=== PATIENT | male | born 1995 | race Caucasian/White ===

== ENCOUNTER 2019-09-30 18:33 | Emergency (ER) | payer SELFPAY ==
[2019-09-30 18:53] VITALS: BP 146/90; PULSE 75; RESP 18; TEMP 37.2; O2SAT 100; BMI 20.6
--- NOTE | 2019-09-30 19:07 | ED_ITS ---
HPI - Extremity Problem General: Chief complaint: Extremity Problem,Nontraumatic Stated complaint: swelling in left arm Time Seen by Provider: 09/30/19 18:59 History of Present Illness: HPI Narrative: Left hand wrist with redness x2 days after he had some swelling of his finger and he poked himself the needle try to relieve the swelling and now he has redness extending up to the wrist. Tetanus is up-to-date MD Complaint: extremity pain Onset (ago): day(s) (2) Location: left Quality: aching Radiation: proximal Relieving factors: nothing Exacerbating factors: nothing Associated symptoms: Reports no associated symptoms; Deny chest pain, fever(s) or rash Review of Systems Const: Denies: fever, chills or body aches Eyes: Denies: change in vision or blurry vision ENMT: Denies: throat pain or nasal congestion Card: Denies: chest pain or shortness of breath on exertion Resp: Denies: shortness of breath, productive cough or non-productive cough GI: Denies: abdominal pain, nausea or vomiting : Denies: difficulty urinating Musc: Reports: extremity pain (Redness to left hand extending from the #2 finger) and extremity swelling Skin/Breast: Denies: rash Neuro: Denies: headache Psych: Denies: anxiety or depression Aftab/Lymph: Denies: easy bruising PFSH ED PFSH: Social History Smoking and tobacco status: current every day smoker Physical Exam Const: COMMON NORMALS: no apparent distress, average body habitus and oriented x3 HENMT: COMMON NORMALS: normocephalic HEAD & SCALP: normal to inspection and normocephalic FACE & SINUS: normal facial exam Eye: COMMON NORMALS: conjunctivae normal GENERAL EYE: normal appearance of both eyes CONJUNCTIVA: Yes conjunctivae normal Neck/C-Spine: COMMON NORMALS: no JVD Chest: COMMONS NORMALS: inspection of chest normal Resp: COMMON NORMALS: normal respiratory effort and clear to auscultation bilaterally AUSCULTATION: clear to auscultation bilaterally Cardio: COMMON NORMALS: no JVD, regular rate and regular rhythm RATE: regular rate RHYTHM: regular rhythm GI: COMMON NORMALS: normal to inspection, nondistended, normoactive bowel sounds Extremity: COMMON NORMALS: full ROM NARRATIVE EXTREMITY EXAM: Has redness extend from #2 finger on the left hand just past the wrist proximal that no swelling Neuro: COMMON NORMALS: oriented x3 Course Vital Signs: Vital signs: Vital Signs Temperature 98.9 F 09/30/19 18:53 Pulse Rate 60 09/30/19 20:20 Respiratory Rate 16 09/30/19 20:20 Blood Pressure 112/81 09/30/19 20:20 Pulse Oximetry 100 09/30/19 20:20 MDM - Extremity (Nontraumatic) Lab Data: Labs: Lab Results 09/30/19 Range/Units 19:10 WBC 6.3 (4.0-10.0) 10^3/ uL RBC 4.21 (4.1-5.3) 10^6/u L Hgb 12.7 (11.7-16.6) g/dL Hct 37.9 L (42.0-52.0) % MCV 90.0 (80-94) fL MCH 30.2 (28.0-34.0) pg MCHC 33.5 (30.0-36.0) g/dL RDW 11.8 L (12.1-15.1) % Plt Count 189 (130-400) 10^3/c mm MPV 9.5 (7.4-10.4) fL Neut % (Auto) 61.6 % Lymph % (Auto) 31.6 % [place] % (Auto) 4.8 % Eos % (Auto) 1.3 % Baso % (Auto) 0.5 % Neut # (Auto) 3.9 (1.8-7.7) 10^3/u L Lymph # (Auto) 2.0 (0.8-4.8) 10^3/u L [place] # (Auto) 0.3 (0.2-0.9) 10^3/u L Eos # (Auto) 0.1 (0.0-0.8) 10^3/u L Baso # (Auto) 0.0 (0.0-0.1) 10^3/u L Nucleated RBC % (a uto) 0 % Nucleated RBCs # 0.0 /100WBC Discharge Plan Discharge Patient Disposition: Home, Self-Care Clinical Impression: Cellulitis Qualifiers: Site of cellulitis: extremity Site of cellulitis of extremity: upper extremity Laterality: left Qualified Code(s): L03.114 - Cellulitis of left upper limb Condition: Stable Prescriptions: New Keflex 500 mg capsule 500 mg PO TID 7 Days Qty: 21 RF: 0 Discharge Orders: Discharge Order (Routine); Ordered 09/30/19 Ordered By: Scott Lindsay Referrals: Johnny Klein MD [Family Provider] - Ayse Martinez FNP-C [Primary Care Provider] - Discharge Diet: Advance as tolerated Discharge Activity: Increase activity as tolerated Patient Instructions: Cellulitis (ED) Activity Restrictions/Additional Instructions: Follow-up with medical provider as directed. Take medications as prescribed. Return to the ER or your medical provider if condition worsens. Please read and understand discharge instructions. If any questions ask please. Discharge Date/Time: 09/30/19 20:26 Coding Level of Care Code ED Supervisor Of Guidance And Testing for Yesseni[place] Fwd Exam Comprehensive
[2019-09-30 19:25] LABS: Basophils % 0.5 %; Eosinophils # 0.1 10^3/uL (0.0-0.8); Eosinophils % 1.3 %; Hematocrit 37.9 % (42.0-52.0); Hemoglobin 12.7 g/dL (11.7-16.6); Lymphocytes % 31.6 %; Mean Corpuscular HGB Conc 33.5 g/dL (30.0-36.0); Mean Corpuscular Hemoglobin 30.2 pg (28.0-34.0); Mean Platelet Volume 9.5 fL (7.4-10.4); Monocytes # 0.3 10^3/uL (0.2-0.9); Monocytes % 4.8 %; Neutrophils # 3.9 10^3/uL (1.8-7.7); Neutrophils % 61.6 %; Nucleated Red Blood Cells % 0 %; Platelet Count 189 10^3/cmm (130-400); Red Blood Count 4.21 10^6/uL (4.1-5.3); Red Cell Distribution Width 11.8 % (12.1-15.1); White Blood Count 6.3 10^3/uL (4.0-10.0)
[2019-09-30] MEDS: cefTRIAXone 1,000 MG in sodium chloride 0.9% (plus) 50 ML 100 MG IV (20:12)
[2019-09-30 20:20] VITALS: BP 112/81; PULSE 60; RESP 16; O2SAT 100
== END 2019-09-30 20:26 | disposition home or self-care (01) ==
PROVIDERS: Emergency Provider Nurse Practitioner Family; Family Provider Pediatrics; PCP Nurse Practitioner Family
DX: L03.114 Cellulitis of left upper limb (principal); F17.200 Nicotine dependence, unspecified, uncomplicated
CPT/HCPCS: 85025; 87040; 96365; 99282; 99283; J0696

== ENCOUNTER 2020-02-18 19:50 | Emergency (ER) | payer SELFPAY ==
[2020-02-18 20:16] VITALS: BP 120/77; PULSE 58; RESP 14; TEMP 36.6; O2SAT 100
--- NOTE | 2020-02-18 20:21 | W.ED.EYEPROB ---
HPI - Eye Problem General: Chief complaint: Eye Problems Stated complaint: fob in r eye Time Seen by Provider: 02/18/20 20:21 Source: patient Mode of arrival: ambulatory Limitations: no limitations History of Present Illness: HPI Narrative: Patient was grinding yesterday and had a piece of metal get in his right eye. Patient appears well. Patient appears in mild pain. Patient denies any other problems or concerns. Review of Systems General: Reports: 10 or more systems reviewed and unremarkable except in HPI and below Eyes: Reports: eye discomfort PFSH ED PFSH: Social History Smoking and tobacco status: current every day smoker Physical Exam Const: COMMON NORMALS: no acute distress and patient oriented x3 GENERAL APPEARANCE: cooperative HENMT: COMMON NORMALS: normocephalic and Normal external nose present HEAD & SCALP: normal to inspection and normocephalic NOSE: Normal external nose present Eye: OTHER: At 12:00 at the distal edge of the iris there is a char[place] of metal. Neck/C-Spine: COMMON NORMALS: full ROM Chest: COMMONS NORMALS: normal inspection of the chest Resp: COMMON NORMALS: normal respiratory effort EFFORT & INSPECTION: Yes able to speak in complete sentences Cardio: COMMON NORMALS: regular rate and regular rhythm RATE: regular rate RHYTHM: regular rhythm GI: COMMON NORMALS: non-tender Back/Pelvis: COMMON NORMALS: thoracic and lumbar spine normal to inspection Extremity: COMMON NORMALS: normal to inspection Neuro: COMMON NORMALS: patient oriented x3 and moves all extremities Psych: COMMON NORMALS: mental status grossly normal and cooperative Skin: COMMON NORMALS: no rashes or lesions noted GENERAL SKIN EXAM: no rashes or lesions noted Procedures FB Removal Eye Location: eye (R) Topical anesthetic used: tetracaine Foreign body: metal Evidence of corneal penetration: No Technique: irrigation, needle and electric maria eugenia Procedure performed under: direct visualization with magnification Post-procedure medication: ophthalmic antibiotic and topical anesthetic Patient tolerated procedure: well Course Vital Signs: Vital signs: Vital Signs Temperature 97.9 F 02/18/20 20:16 Pulse Rate 58 L 02/18/20 20:16 Respiratory Rate 14 02/18/20 20:16 Blood Pressure 120/77 02/18/20 20:16 Pulse Oximetry 100 02/18/20 20:16 MDM - Eye Problem MDM Narrative: Medical decision making narrative: Patient comes in today for foreign body in the right eye. On exam we note a small charlotte of metal at the 12 o'clock position at the distal edge of the iris in the right eye. Acuity is normal. No globe injury or penetration. Patient has normal extraocular motor function. Differential diagnosis includes corneal abrasion, foreign body, corneal laceration. Complete removal of the foreign body was successful using a needle and bur. Rust ring was successfully removed. Recommended follow-up with eye special needs caregiver in 3 days to recheck. Patient was placed on prophylactic antibiotic eyedrops. Patient reports understanding of care plan and need for follow-up. Discharge Plan Discharge Patient Disposition: Home, Self-Care Clinical Impression: Foreign body in eye Qualifiers: Encounter type: initial encounter Laterality: right Qualified Code(s): T15.91XA - Foreign body on external eye, part unspecified, right eye, initial encounter Condition: Stable Discharge Orders: Discharge Order (Routine); Ordered 02/18/20 Ordered By: Konstantin Wise Discharge Diet: Usual diet Discharge Activity: Increase activity as tolerated Activity Restrictions/Additional Instructions: Use antibiotic eyedrops 1 drop to the affected eye 4 times a day for the next 5 to 7 days. Have eye reevaluated in 3 days by eye special needs caregiver to evaluate healing. Drink plenty of water. Use eye protection around grinding tools. Follow-up with primary care as needed. Return to the ED for new concerns. Coding Level of Care Code ED Electronic Prepress Operator for Kalpana Rivera Exam Comprehensive
[2020-02-18] MEDS: tobramycin-dexametha Op Susp 5 mL Btl 2 DROP EYE-RIGHT (20:55)
[2020-02-18] MEDS: fluorescein 1 mg Strip EYE-RIGHT (20:56)
[2020-02-18] MEDS: tetracaine 0.5% Op Soln 4 mL Btl 1 DROP EYE-RIGHT (20:56)
[2020-02-18] MEDS: eye irrigation 30 mL Btl EYE-RIGHT (20:56)
== END 2020-02-18 20:59 | disposition home or self-care (01) ==
PROVIDERS: Emergency Provider Nurse Practitioner Family
DX: T15.91XA Foreign body on external eye, part unspecified, right eye, initial encounter (principal); X58.XXXA Exposure to other specified factors, initial encounter; F17.210 Nicotine dependence, cigarettes, uncomplicated
CPT/HCPCS: 12345; 65205; 99281; 99283

== ENCOUNTER 2020-11-25 08:07 | Emergency (ER) | payer SELFPAY ==
[2020-11-25 08:13] VITALS: BP 151/91; PULSE 72; RESP 18; TEMP 36.9; O2SAT 100
[2020-11-25] MEDS: HYDROcodone-acetaminophen 5-325 mg Tablet 1 TAB PO (08:27)
--- NOTE | 2020-11-25 08:46 | ED_ITS ---
HPI - Dental/Oral General: Chief complaint: Dental/Oral Stated complaint: TOOTH PAIN Time Seen by Provider: 11/25/20 08:07 Source: patient Mode of arrival: ambulatory Limitations: no limitations History of Present Illness: HPI Narrative: 25-year-old male patient presents to the emergency department with 1 month onset of dental pain. He reports dental pain became severe during the night last night. States [id number] use of Tylenol and Motrin has not helped. He states filling placed in the left lower tooth years ago. States approximately 1 month ago, part of the tooth broke off. He reports excruciating pain, he is tearful upon exam. He is also complaining of the left upper molar pain as well. He has dental appointment scheduled for January 01. MD Complaint: tooth pain Location: Tooth # (16 and 17) Duration: constant Severity: severe Relieving factors: nothing Context: history of dental caries Associated symptoms: Reports ear or mastoid pain; Denies fever(s) or odynophagia Review of Systems General: Reports: 10 or more systems reviewed and unremarkable except in HPI and below Const: Denies: fever(s), chills or diaphoresis Eyes: Denies: change in vision, blurry vision, eye discomfort or eye redness ENMT: Reports: dental pain, ear or mastoid pain and sinus pain; Denies: throat pain, odynophagia, mouth pain, swelling of lips/tongue, dry mouth, halitosis, nasal discharge, nasal congestion, nasal obstruction, epistaxis or post nasal drip Card: Denies: chest pain, palpitations or irregular heart rhythm Resp: Denies: dyspnea, productive cough, non-productive cough or wheezing GI: Denies: abdominal pain, nausea or vomiting : Denies: dysuria Musc: Denies: neck pain, back pain or joint pain Skin/Breast: Denies: rash or pruritus Neuro: Denies: headache(s), weakness in extremities or behavioral changes Psych: Denies: anxiety or depression Aftab/Lymph: Denies: easy bruising PFSH ED PFSH: Social History Smoking and tobacco status: current every day smoker Physical Exam Const: COMMON NORMALS: patient oriented x3, healthy appearing, alert and well nourished GENERAL APPEARANCE: cooperative, well kempt, well developed, well hydrated and other (Appears in pain, holding his face on the left side) NUTRITIONAL APPEARANCE: thin ORIENTATION/CONSCIOUSNESS: Yes awake, Yes oriented to person, Yes oriented to place and Yes oriented to time HENMT: COMMON NORMALS: normocephalic, atraumatic, EAC's normal, TM's normal bilaterally, Normal external nose present and moist oral mucous membranes HEAD & SCALP: normal to inspection, normocephalic and atraumatic FACE & SINUS: normal facial exam, sinuses nontender and face symmetric NOSE: Normal external nose present, Normal nares present and No nasal polyps present EXTERNAL AUDITORY CANAL: EAC's normal TYMPANIC MEMBRANE: TM's normal bilaterally MOUTH: Normal oral and palatal mucosa present, lip normal and tongue normal; no trismus, no restricted motion and no thickened frenulum TEETH & GINGIVA IMAGES: 1. Gingival edema and erythema with tooth avulsion of #17, partial 2. Gingival edema with erythema, dental caries present. Pain with tongue blade palpation THROAT: posterior oropharynx normal, tonsils normal and uvula midline Eye: COMMON NORMALS: Equal, round and reactive pupils present and EOMs intact bilaterally GENERAL EYE: appearance normal, both eyes and all related s tructures PUPIL: Yes Equal, round and reactive pupils present Neck/C-Spine: COMMON NORMALS: full ROM and no lymphadenopathy GENERAL: Yes normal visual inspection and Yes trachea midline CERVICAL SPINE: Yes cervical ROM normal Lymph: LYMPHATIC: no lymphadenopathy noted Chest: COMMONS NORMALS: normal inspection of the chest Resp: COMMON NORMALS: normal respiratory effort and clear to auscultation bilaterally AUSCULTATION: clear to auscultation bilaterally Cardio: COMMON NORMALS: regular rhythm, S1 normal heart sound present and S2 normal heart sound present RHYTHM: regular rhythm HEART SOUNDS: S1 normal heart sound present and S2 normal heart sound present GI: COMMON NORMALS: Soft to palpation and non-tender INSPECTION: Yes normal to inspection PALPATION: Yes Soft to palpation : COMMON NORMALS: Yes no CVA tenderness BLADDER/KIDNEY EXAM: Yes no CVA tenderness Back/Pelvis: COMMON NORMALS: no CVA tenderness and thoracic and lumbar spine normal to inspection Extremity: COMMON NORMALS: normal to inspection and capillary refill normal Neuro: COMMON NORMALS: patient oriented x3 and no focal motor deficits SENSORIUM/ORIENTATION: Yes alert, Yes oriented to person, Yes oriented to place and Yes oriented to time Psych: COMMON NORMALS: mental status grossly normal, Normal thought process present and cooperative APPEARANCE: Yes well kempt ACTIVITY/MOTOR BEHAVIOR: Yes appropriate eye contact THOUGHT PROCESS: Normal thought process present Skin: COMMON NORMALS: no rashes or lesions noted and turgor normal GENERAL SKIN EXAM: no rashes or lesions noted and turgor normal Procedures Nerve Block Nerve Block 1: Time out performed: Yes Local Anesthetic: lidocaine 1%, bupivacaine 0.5% and with epi Amount of anesthesia used (mL): 5 Side: left Intraoral Nerve Block: superior alveolar and inferior alveolar Procedure Successful: Yes Patient Tolerated Procedure: well Complications: none Course Vital Signs: Vital signs: Vital Signs Temperature 98.5 F 11/25/20 08:13 Pulse Rate 72 11/25/20 08:13 Respiratory Rate 18 11/25/20 08:13 Blood Pressure 151/91 11/25/20 08:13 Pulse Oximetry 100 11/25/20 08:13 Discharge Plan Discharge Patient Disposition: Home Clinical Impression: Toothache, Dental caries, Dental abscess Fracture of tooth Qualifiers: Encounter type: initial encounter Fracture type: closed Qualified Code(s): S02.5XXA - Fracture of tooth (traumatic), initial encounter for closed fracture Condition: Stable Prescriptions: New clindamycin HCl 300 mg capsule 300 mg PO QID 7 Days Qty: 28 RF: 0 tramadol 50 mg tablet 50 mg PO Q6H PRN (Reason: pain) Qty: 10 RF: 0 IBU 600 mg tablet 600 mg PO TID PRN (Reason: pain) Qty: 20 RF: 0 Discharge Orders: Discharge ED (Routine); Ordered 11/25/20 Ordered By: Dahiana Gnozales Discharge Diet: GI Soft Discharge Activity: Resume usual activity Patient Instructions: Dental Abscess (ED), Dental Caries (ED), Opioid Safety Activity Restrictions/Additional Instructions: Call tomorrow for a sooner appointment, take antibiotics, clindamycin, until all gone even if better Rinse with warm salt water swish and spit several times daily, every 1-2 hours to help with pain May apply dental wax to the affected teeth to help with sensitivity and pain Return to the emergency department if you develop swelling under the tongue, worsening dental pain or difficulty breathing. May apply Anbesol or [id number] topical dental relief medication. Coding Level of Care Code ED Forepart Rounder for Kalpana Fwd Exam Comprehensive
== END 2020-11-25 09:14 | disposition home or self-care (01) ==
PROVIDERS: Emergency Provider Nurse Practitioner Family
DX: S02.5XXA Fracture of tooth (traumatic), initial encounter for closed fracture (principal); K02.9 Dental caries, unspecified; K04.7 Periapical abscess without sinus; F17.210 Nicotine dependence, cigarettes, uncomplicated; X58.XXXA Exposure to other specified factors, initial encounter
CPT/HCPCS: 99283; J3490

== ENCOUNTER 2021-06-20 08:03 | Emergency (ER) | payer SELFPAY ==
[2021-06-20 08:09] VITALS: BP 154/107; PULSE 57; RESP 18; TEMP 36.3; O2SAT 99
--- NOTE | 2021-06-20 08:24 | W.ED.DENTAL ---
HPI - Dental/Oral General: Chief complaint: Dental/Oral Stated complaint: Tooth infection Time Seen by Provider: 06/20/21 08:07 History of Present Illness: HPI Narrative: Dental pain x3 days MD Complaint: tooth pain Teeth map: 1. Caries Onset (ago): day(s) Duration: constant Severity: moderate Severity scale (1-10): 5 Relieving factors: nothing Exacerbating factors: chewing, cold and heat Context: history of dental caries Associated symptoms: Reports no associated symptoms; Denies fever(s) Review of Systems Const: Denies: fever(s), chills or body aches Eyes: Denies: change in vision or blurry vision ENMT: Reports: dental pain; Denies: throat pain or nasal congestion Card: Denies: chest pain or dyspnea on exertion Resp: Denies: dyspnea, productive cough or non-productive cough GI: Denies: abdominal pain, nausea or vomiting : Denies: difficulty urinating Musc: Denies: extremity pain Skin/Breast: Denies: rash Neuro: Denies: headache(s) Psych: Denies: anxiety or depression Aftab/Lymph: Denies: easy bruising PFSH ED PFSH: Social History Smoking and tobacco status: current every day smoker Physical Exam Const: COMMON NORMALS: no acute distress GENERAL APPEARANCE: cooperative HENMT: TEETH & GINGIVA IMAGES: 1. Caries 2. Gum discomfort and gum disease Psych: COMMON NORMALS: mental status grossly normal Skin: COMMON NORMALS: no rashes or lesions noted (No swelling to the gum jaws or lymphadenopathy noted) GENERAL SKIN EXAM: no rashes or lesions noted (No swelling to the gum jaws or lymphadenopathy noted) Course Vital Signs: Vital signs: Vital Signs Temperature 97.4 F L 06/20/21 08:09 Pulse Rate 57 L 06/20/21 08:09 Respiratory Rate 18 06/20/21 08:09 Blood Pressure 154/107 06/20/21 08:09 Pulse Oximetry 99 06/20/21 08:09 Discharge Plan Discharge Patient Disposition: Home Clinical Impression: Dental caries Condition: Stable Prescriptions: New clindamycin HCl 300 mg capsule 300 mg PO Q8H 7 Days Qty: 21 RF: 0 Celebrex 100 mg capsule 100 mg PO BID Qty: 20 RF: 0 Discontinued ibuprofen [IBU] 600 mg tablet 600 mg PO TID PRN (Reason: pain) Qty: 20 RF: 0 No Action tramadol 50 mg tablet 50 mg PO Q6H PRN (Reason: pain) Qty: 10 RF: 0 Discharge Orders: Discharge ED (Routine); Ordered 06/20/21 Ordered By: Oniel Lindsay Discharge Diet: Usual diet Discharge Activity: Resume usual activity Patient Instructions: Dental Caries (Cavities) Activity Restrictions/Additional Instructions: Keep appointment with dentist on the 7th as scheduled. Take medication as directed. Coding Level of Care Code ED Patrol Inspector for Kalpana Rivera
== END 2021-06-20 08:29 | disposition home or self-care (01) ==
PROVIDERS: Emergency Provider Nurse Practitioner Family
DX: K02.9 Dental caries, unspecified (principal)
CPT/HCPCS: 99281

== ENCOUNTER 2021-09-14 19:43 | Emergency (ER) | payer BC, SELFPAY ==
[2021-09-14 19:51] VITALS: BP 125/75; PULSE 54; RESP 18; TEMP 36.8; O2SAT 99; BMI 21.1
--- NOTE | 2021-09-14 20:07 | W.ED.ALLEREA ---
HPI - Allergic Reaction General: Chief complaint: Allergic Reaction Stated complaint: Throat Swelling\Allergic Reaction Time Seen by Provider: 09/14/21 20:07 History of Present Illness: HPI narrative: Patient comes in today with complaints of sore throat and difficulty swallowing. Patient was concerned he may be having a allergic reaction to some homemade bread he had made. Patient appears no respiratory distress. Patient appears well. Patient appears in mild to moderate pain. Review of Systems General: Reports: 10 or more systems reviewed and unremarkable except in HPI and below ENMT: Reports: throat pain and odynophagia PFSH ED PFSH: Social History Smoking and tobacco status: current every day smoker Physical Exam Const: COMMON NORMALS: alert HENMT: COMMON NORMALS: normocephalic and Normal external nose present HEAD & SCALP: normocephalic NOSE: Normal external nose present THROAT: posterior oropharynx abnormal cobblestoning and erythema Neck/C-Spine: COMMON NORMALS: full ROM and no lymphadenopathy Resp: COMMON NORMALS: normal respiratory effort and clear to auscultation bilaterally AUSCULTATION: clear to auscultation bilaterally Cardio: COMMON NORMALS: regular rate and regular rhythm RATE: regular rate RHYTHM: regular rhythm Extremity: COMMON NORMALS: normal to inspection Neuro: SENSORIUM/ORIENTATION: Yes alert Psych: COMMON NORMALS: cooperative Skin: COMMON NORMALS: no rashes or lesions noted GENERAL SKIN EXAM: no rashes or lesions noted Course Vital Signs: Vital signs: Vital Signs Temperature 97.2 F L 09/14/21 20:58 Pulse Rate 69 09/14/21 20:58 Respiratory Rate 18 09/14/21 20:58 Blood Pressure 125/79 09/14/21 20:58 Pulse Oximetry 99 09/14/21 20:58 MDM - Allergic Reaction Medical Decision Making 26-year-old male patient comes in with sore throat and difficulty swallowing. On exam posterior pharynx is erythematous with cobblestoning. Lungs are clear to auscultation. No lymphadenopathy is noted. Vital signs are normal. Differential diagnosis includes but not limited to acute pharyngitis, allergic reaction, postnasal drip. Patient was really concerned for an allergic reaction due to some homemade bread he eaten with symptoms starting afterwards. Patient did not report rash or itching though. Posterior pharynx did note some cobblestoning which may be secondary to allergen. Patient was given 50 mg of Benadryl and 60 mg of prednisone. After monitoring cobblestoning improved but patient continued to complain of significant pain and discomfort to his throat. I suspect patient probably has a viral pharyngitis we will treat with supportive care and encourage plenty of fluids and follow-up with primary care. Patient be kept on prednisone 20 mg twice a day for 5 days. Hydroxyzine as needed for allergy symptoms. And hydrocodone for severe pain. Patient reported understanding and agreed to plan. Discharge Plan Discharge Patient Disposition: Home Clinical Impression: Pharyngitis Condition: Stable Prescriptions: New hydroxyzine HCl 25 mg tablet 25 mg PO Q4H PRN (Reason: allergic symptoms) Qty: 30 0RF prednisone 20 mg tablet 20 mg PO BID 5 Days Qty: 10 0RF hydrocodone-acetaminophen 5-325 mg tablet 1 tab PO Q8H PRN (Reason: pain (scale score 7-10)) Qty: 6 0RF Discontinued tramadol 50 mg tablet 50 mg PO Q6H PRN (Reason: pain) Qty: 10 0RF celecoxib [Celebrex] 100 mg capsule 100 mg PO BID Qty: 20 0RF Discharge Orders: Discharge ED (Routine); Ordered 09/14/21 Ordered By: Konstantin Wise Discharge Diet: Usual diet Discharge Activity: Increase activity as tolerated Patient Instructions: Pharyngitis (ED) Activity Restrictions/Additional Instructions: I feel that you are more likely to have a viral pharyngitis. Most often this can cause some pain and discomfort to the throat. You may start running a fever over the next 24 to 48 hours. Use of the fever breaks within 2 to 3 days after onset of symptoms. Drink plenty of water. Use acetaminophen and ibuprofen for discomfort and fever. Use hydrocodone for severe pain. Follow-up with primary care for further instruction. You have also been prescribed some prednisone which will help with the pain and inflammation. Use hydroxyzine as needed for allergy symptoms. Coding Level of Care Code ED Customer Sales Consultant for Chg Fwd History Expanded Problem Focused Exam Expanded Problem Focused Medical Decision Making Low Complexity Time Spent (min) 30
[2021-09-14] MEDS: diphenhydrAMINE 50 mg/mL SDV 1mL IM (20:29)
[2021-09-14] MEDS: predniSONE 20 mg Tablet 60 MG PO (20:29)
--- NOTE | 2021-09-14 20:30 | PC.NURSE ---
patient reports allergic reaction after eating a sandwich. states no previous allergies noted. no oral edema noted. speech clear. states difficulty swallowing.
[2021-09-14] MEDS: HYDROcodone-acetaminophen 5-325 mg Tablet 1 TAB PO (20:57)
[2021-09-14 20:58] VITALS: BP 125/79; PULSE 69; RESP 18; TEMP 36.2; O2SAT 99
== END 2021-09-14 20:58 | disposition home or self-care (01) ==
PROVIDERS: Emergency Provider Nurse Practitioner Family
DX: J02.9 Acute pharyngitis, unspecified (principal); F17.210 Nicotine dependence, cigarettes, uncomplicated
CPT/HCPCS: 96372; 99283; J1200; J7512

== ENCOUNTER 2023-09-14 11:48 | Emergency (ER) | payer BC, SELFPAY ==
[2023-09-14] VITALS (7 sets, daily range): BP systolic 112–133; BP diastolic 64–84; PULSE 44–55; RESP 14; TEMP 36.8; O2SAT 94–99; BMI 21.9
[2023-09-14 12:27] LABS: Basophils % 0.6 %; Eosinophils # 0.1 10^3/uL (0.0-0.8); Eosinophils % 2.1 %; Hematocrit 40.1 % (37-53); Lymphocytes % 43.3 %; Mean Corpuscular HGB Conc 33.9 g/dL (30-55); Mean Corpuscular Hemoglobin 30.4 pg (27-33); Mean Corpuscular Volume 89.5 fl (82-101); Mean Platelet Volume 9.6 fL (7.4-10.4); Monocytes # 0.2 10^3/uL (0.2-0.9); Monocytes % 4.9 %; Neutrophils # 2.29 10^3/uL (1.8-7.7); Neutrophils % 48.9 %; Nucleated Red Blood Cells % 0 %; Platelet Count 180 10^3/cmm (157-399); Red Blood Count 4.48 10^6/uL (3.85-5.65); Red Cell Distribution Width 11.9 % (12.1-15.1); White Blood Count 4.69 10^3/uL (3.29-11.43)
[2023-09-14 12:44] LABS: Alanine Aminotransferase 16 U/L (0-41); Albumin Level 4.5 g/dL (3.5-5.2); Alkaline Phosphatase 42 U/L (40-130); Anion Gap 11.9 (5-19); Aspartate Amino Transferase 28 U/L (0-40); Blood Urea Nitrogen 7 mg/dL (6-20); Calcium 8.8 mg/dL (8.5-10.5); Carbon Dioxide 27 mmol/L (22-29); Chloride 102 mmol/L (98-107); Globulin 2.8 g/dL (1.3-4.6); Glomerular Filtration Rate 101.2 mL/min (90-130); Glucose 116 mg/dL (65-115); Osmolality Calculated 283 mOsm/kg (285-295); Potassium 3.9 mmol/L (3.5-5.1); Sodium 137 mmol/L (136-145); Total Bilirubin 0.4 mg/dL (0.15-1.2); Total Protein 7.3 g/dL (6.6-8.7)
--- NOTE | 2023-09-14 13:02 | ED_ITS ---
HPI - Abdominal Pain 2 General: Chief Complaint: Abdominal Pain Stated Complaint: blood in stools Time Seen by Provider: 09/14/23 12:38 Source: patient Mode of arrival: ambulatory History of Present Illness: 28-year-old male who presents emergency room complaining of bloody stools had for the last couple of days little bit worse today is not having lightheadedness or dizziness. He has had problems with hemorrhoids in the past no recent trauma to the rectal area no history of diverticular disease no previous abdominal surgeries or rectal surgeries. MD elicited complaint: abdominal pain Onset (ago): day(s) Associated Symptoms: Denies anorexia, belching, bloating, change in bowel habits, change in stool character, chills, coffee ground emesis, constipation, GI cramping, diarrhea, dyspepsia, dysuria, excessive flatus, fever(s), heartburn, hematochezia, hematuria, hematemesis, fecal incontinence, loose stools, melena, nausea, poor appetite, syncope and vomiting Review of Systems 2 Const: Denies: fever(s) or chills Card: Denies: syncope Resp: Denies: dyspnea GI: Denies: nausea, vomiting, hematemesis, coffee ground emesis, heartburn, diarrhea, constipation, bloating, GI cramping, belching, excessive flatus, fecal incontinence, change in bowel habits, change in stool character, hematochezia or melena : Denies: dysuria or hematuria Musc: Denies: neck pain or back pain Skin/Breast: Denies: rash PFSH ED 2 PFSH: Social History Smoking and tobacco/nicotine status: current every day tobacco/nicotine user Physical Exam 2 Const: COMMON NORMALS: no acute distress GENERAL APPEARANCE: cooperative and comfortable ORIENTATION/CONSCIOUSNESS: Yes awake, Yes oriented to person, Yes oriented to place and Yes oriented to time HENMT: COMMON NORMALS: normocephalic, atraumatic and hearing grossly normal bilaterally HEAD & SCALP: normocephalic and atraumatic Resp: COMMON NORMALS: normal respiratory effort, No retractions, No use of accessory muscles and clear to auscultation bilaterally AUSCULTATION: clear to auscultation bilaterally Cardio: COMMON NORMALS: regular rate, regular rhythm and No murmurs present (Cardio) RATE: regular rate RHYTHM: regular rhythm GI: COMMON NORMALS: Soft to palpation and No hepatosplenomegaly present A USCULTATION: Yes normoactive bowel sounds PALPATION: Yes Soft to palpation, No Tenderness to palpation present (GI), No Guarding due to palpation present (GI) and Yes No hepatosplenomegaly present Extremity: COMMON NORMALS: normal to inspection, capillary refill normal, no clubbing, cyanosis or edema, no calf tenderness and no pedal edema Neuro: SENSORIUM/ORIENTATION: Yes oriented to person, Yes oriented to place and Yes oriented to time Skin: COMMON NORMALS: no rashes or lesions noted GENERAL SKIN EXAM: no rashes or lesions noted Course 2 Vital Signs: Vital signs: Vital Signs Temperature 98.3 F 09/14/23 12: Pulse Rate 44 L 09/14/23 15:26 Respiratory Rate 14 09/14/23 12:26 Blood Pressure 130/70 09/14/23 15:26 Pulse Oximetry 94 09/14/23 15:26 Oxygen Delivery Me thod Room Air 09/14/23 14:30 MDM - Abdominal Pain Medical Decision Making Labs and CT reviewed. Patient hemoglobin is stable is not had any further blood hematochezia while here. CT does not show any acute abnormalities. Will cover with antibiotics for possible colitis or proctitis as a source. Set him up for primary care evaluation and general surgery for possible colonoscopy. Return if has worsening problems. Medical Records I reviewed the patient's medical records. Lab Data I reviewed the patient's lab results. 09/14/23 12:16 09/14/23 12:16 Labs/Radiology: Laboratory Results WBC 4.69 10^3/uL (3.29-11.43) 09/14/23 12:16 RBC 4.48 10^6/uL (3.85-5.65) 09/14/23 12:16 Hgb 13.60 g/dL (11.27-16.99) 09/14/23 12:16 Hct 40.1 % (37-53) 09/14/23 12:16 MCV 89.5 fl (82-101) 09/14/23 12:16 MCH 30.4 pg (27-33) 09/14/23 12:16 MCHC 33.9 g/dL (30-55) 09/14/23 12:16 RDW 11.9 % (12.1-15.1) L 09/14/23 12:16 Plt Count 180 10^3/cmm (157-399) 09/14/23 12:16 MPV 9.6 fL (7.4-10.4) 09/14/23 12:16 Neut % (Auto) 48.9 % 09/14/23 12:16 Lymph % (Auto) 43.3 % 09/14/23 12:16 [place] % (Auto) 4.9 % 09/14/23 12:16 Eos % (Auto) 2.1 % 09/14/23 12:16 Baso % (Auto) 0.6 % 09/14/23 12:16 Neut # (Auto) 2.29 10^3/uL (1.8-7.7) 09/14/23 12:16 Lymph # (Auto) 2.0 10^3/uL (0.8-4.8) 09/14/23 12:16 [place] # (Auto) 0.2 10^3/uL (0.2-0.9) 09/14/23 12:16 Eos # (Auto) 0.1 10^3/uL (0.0-0.8) 09/14/23 12:16 Baso # (Auto) 0.0 10^3/uL (0.0-0.1) 09/14/23 12:16 Nucleated RBC % (auto) 0 % 09/14/23 12:16 Nucleated RBCs # 0.0 /100WBC 09/14/23 12:16 PT 13.50 SECONDS (12.1-14.9) 09/14/23 12:16 INR 1.00 (0.8-1.2) 09/14/23 12:16 Sodium 137 mmol/L (136-145) 09/14/23 12:16 Potassium 3.9 mmol/L (3.5-5.1) 09/14/23 12:16 Chloride 102 mmol/L (98-107) 09/14/23 12:16 Carbon Dioxide 27 mmol/L (22-29) 09/14/23 12:16 Anion Gap 11.9 (5-19) 09/14/23 12:16 BUN 7 mg/dL (6-20) 09/14/23 12:16 Creatinine 0.9 mg/dL (0.7-1.2) 09/14/23 12:16 GFR Calculation 101.2 mL/min (90-130) 09/14/23 12:16 Glucose 116 mg/dL (65-115) H 09/14/23 12:16 Calculated Osmolality 283 mOsm/kg (285-295) L 09/14/23 12:16 Calcium 8.8 mg/dL (8.5-10.5) 09/14/23 12:16 Total Bilirubin 0.4 mg/dL (0.15-1.2) 09/14/23 12:16 AST 28 U/L (0-40) 09/14/23 12:16 ALT 16 U/L (0-41) 09/14/23 12:16 Alkaline Phosphatase 42 U/L (40-130) 09/14/23 12:16 Total Protein 7.3 g/dL (6.6-8.7) 09/14/23 12:16 Albumin 4.5 g/dL (3.5-5.2) 09/14/23 12:16 Globulin 2.8 g/dL (1.3-4.6) 09/14/23 12:16 All radiology interpretation(s) finalized by discharge Discharge Plan Discharge Patient Disposition: Home Clinical Impression: Rectal bleeding Condition: Stable Prescriptions: New Cipro 500 mg tablet 500 mg PO BID Qty: 14 0RF metronidazole 500 mg tablet 500 mg PO BID 7 Days Qty: 14 0RF Discharge Orders: Discharge ED (Routine); Ordered 09/14/23 Ordered By: Tio Ashley Discharge Diet: Usual diet Discharge Activity: Resume usual activity Patient Instructions: Opioid Safety, Pain Management Activity Restrictions/Additional Instructions: Thank you for choosing [facility] for your healthcare needs today. Please realize this is an emergency room and that we are providing you with a medical screening exam and this may not be complete and all inclusive of all the testing and or work up that you may need to determine your ailment or severity of your illness. It is very important that you follow up as instructed or that you return to the Emergency Department should you have concerns or if your condition changes or worsens in any way. You are seen today for rectal bleeding CT did not show any significant abnormalities your white count and hemoglobin were normal. Recommend that you start on oral antibiotics Cipro metronidazole 1 tablet twice daily for 7 days. Case management make arrangements for you to establish with a primary care provider and to see general surgery for colonoscopy. If you have worsening of symptoms return to the emergency room Coding Level of Care Code ED Movie Producer for Kalpana Rivera
--- NOTE | 2023-09-14 13:03 | CT_ITS ---
WS: [id number] CT ABDOMEN AND PELVIS WITH CONTRAST HISTORY: abd pain, bloody stool. TECHNIQUE: Imaging performed of the abdomen and pelvis with IV contrast. Single phase imaging of the abdomen. Coronal and sagittal reformats are submitted. All CT scans at [facility] use at [address] one of these dose optimization techniques: automated exposure control; mA and/or kV adjustment per patient size (includes targeted exams where dose is matched to clinical indication); or iterative re construction. IV CONTRAST: Omnipaque 350; 100 mL IV. Oral contrast: No. DLP: 420.70 mGy.cm COMPARISON: 04/14/2016 Lower thorax: Lung bases are clear. Heart is normal size. No hiatal hernia. Liver/biliary system: Normal size with no intrahepatic dilatation. Gallbladder: Normal. No gallstones or wall thickening. No pericholecystic fluid. Pancreas: Normal size pancreas and pancreatic duct. No adjacent inflammation. Spleen: Normal size spleen. No mass or infarct. Adrenal glands: Normal. Right kidney: Normal. Left kidney: Normal. Aorta: Normal. Lymphadenopathy: None. Free fluid: None. GI tract: Unremarkable. Abdominal wall: Unremarkable abdominal wall. No hernia. Pelvis: No free fluid or adenopathy within the pelvis. Bones: L1 anterior compression fracture is new since 04/14/2016. IMPRESSION: 1. Negative CT abdomen and pelvis. No GI tract obstruction. No free fluid or free air. 2. No colitis identified.
[2023-09-14] MEDS: iohexol 350 mg/mL 500 mL Btl (per mL) IV (13:40)
--- NOTE | 2023-09-14 18:19 | DCPLANNER ---
Message was sent to general surgery on 09/14/23 at [id number]. Clinic to contact patient
== END 2023-09-14 15:30 | disposition home or self-care (01) ==
PROVIDERS: Emergency Medicine; Emergency Provider Family Medicine
DX: K62.5 Hemorrhage of anus and rectum (principal); Z72.0 Tobacco use
CPT/HCPCS: 36415; 74177; 80053; 85025; 85610; 99285; Q9967